=== PATIENT | female | born 1950 | race Caucasian/White ===

== ENCOUNTER → 2016-10-10 | Outpatient (CLI) | payer BC ==
--- NOTE | 2016-10-10 15:55 | DIAGNOSTIC IMAGING REPORT ---
RIGHT FOOT 3 VIEWS CLINICAL HISTORY: Right foot pain. FINDINGS: 3 views of the right foot are obtained. No prior studies are available for comparison at the time of dictation. The skeletal structures are osteopenic. No fracture is seen. There is hallux valgus, with arthritic change at the first metatarsophalangeal joint. The joint spaces of the foot are otherwise maintained. The overlying soft tissues are within normal limits. IMPRESSION: 1. No acute bony abnormality is seen in the right foot. 2. Hallux valgus with arthritic change at the first metatarsophalangeal joint. Electronically signed by: Woodrow Amin M.D. 10/10/2016 3:53 PM Dictated Date/Time: 10/10/2016 3:52 PM
== END | disposition home or self-care (01) ==
LOC: C.RAD1850 15:34
PROVIDERS: ATTEND Nurse Practitioner
DX: M79.671 Pain in right foot (principal)

== ENCOUNTER → 2016-11-13 | Outpatient (CLI) | payer BC ==
--- NOTE | 2016-11-14 13:22 | MAMMOGRAPHY REPORT ---
BILATERAL DIGITAL SCREENING MAMMOGRAM 3D/2D WITH CAD: 11/13/2016 CLINICAL HISTORY: Routine screening. Patient has no complaints. TECHNIQUE: Breast tomosynthesis in addition to standard 2D mammography was performed. Current study was also evaluated with a Computer Aided Detection (CAD) system. COMPARISON: Comparison is made to exams dated: 05/07/2015 mammogram, 12/18/2013 mammogram - [facility], 11/25/2012 mammogram, and 04/18/2011 mammogram - [facility]. BREAST COMPOSITION: The tissue of both breasts is heterogeneously dense, which may obscure small mas ses. FINDINGS: There is a stable benign-appearing 7 mm mass with a cystic coarse calcification in the 9:00 right breast, unchanged in size dating back to at least 04/18/2011, therefore likely benign. There are other scattered benign rim calcifications in both breasts. No suspicious mass, architectural dis tortion or cluster of suspicious microcalcifications is seen. ACR BI-RADS CATEGORY 1: NEGATIVE There is no mammographic evidence of malignancy. A 1 year screening mammogram is recommended. The pa tient will receive written notification of the results. Approximately 10% of breast cancers are not detected with mammography. A negative mammographic report should not delay biopsy if a clinically suggestive mass is present. Michela Morrison M.D. ay/:11/13/2016 15:38:30 [employer] Production Specialist: Lanny VEGAS(Ryan)(Anastasiia), [facility] letter sent: Normal 1/2 BI-RADS Code: ACR BI-RADS Category 1: Negative
== END | disposition home or self-care (01) ==
LOC: C.MAMM 14:28
PROVIDERS: ATTEND Family Medicine
DX: Z12.31 Encounter for screening mammogram for malignant neoplasm of breast (principal)

== ENCOUNTER → 2016-12-26 | Outpatient (CLI) | payer BC | END | disposition home or self-care (01) | LOC: C.MAMM 13:31 | PROVIDERS: ATTEND Family Medicine | DX: Z13.820 Encounter for screening for osteoporosis (principal); M85.852 Other specified disorders of bone density and structure, left thigh; M85.851 Other specified disorders of bone density and structure, right thigh ==

== ENCOUNTER → 2017-02-02 | Outpatient (CLI) | payer BC ==
--- NOTE | 2017-02-02 15:28 | DIAGNOSTIC IMAGING REPORT ---
LEFT ANKLE 3 VIEWS HISTORY: LEFT ANKLE PAIN COMPARISON: None. FINDINGS: There is no fracture or dislocation. Soft tissues are unremarkable. No radiopaque foreign bodies. IMPRESSION: No fractures. Electronically signed by: Wan Fletcher M.D. 02/02/2017 3:27 PM Dictated Date/Time: 02/02/2017 3:26 PM
== END | disposition home or self-care (01) ==
LOC: C.RAD1850 14:56
PROVIDERS: ATTEND Family Medicine
DX: M25.572 Pain in left ankle and joints of left foot (principal)

== ENCOUNTER → 2017-07-03 | Outpatient (CLI) | payer OTHER ==
--- NOTE | 2017-07-03 14:00 | DIAGNOSTIC IMAGING REPORT ---
CHEST 2 VIEWS ROUTINE CLINICAL HISTORY: 66 years-old Female presenting with R05 cough for 6 months. TECHNIQUE: PA and lateral views of the chest were obtained. COMPARISON: 12/25/2014. FINDINGS: Atherosclerosis of the aortic arch. Cardiac silhouette normal in size. Lungs and pleural spaces clear. Osseous structures normal. Cholecystectomy clips noted. Postsurgical changes of prior hernia repair in the ventral abdomen. IMPRESSION: 1. No acute cardiopulmonary disease. Electronically signed by: Galen Pratt M.D. 07/03/2017 1:59 PM Dictated Date/Time: 07/03/2017 1:58 PM
== END | disposition home or self-care (01) ==
LOC: C.RAD1850 13:45
PROVIDERS: ATTEND Family Medicine
DX: R05 Cough (principal)

== ENCOUNTER → 2017-07-25 | Outpatient (CLI) | payer OTHER ==
--- NOTE | 2017-07-25 16:27 | DIAGNOSTIC IMAGING REPORT ---
L-SPINE MIN 4 VIEWS ROUTINE CLINICAL HISTORY: M54.5 low back pain COMPARISON STUDY: No previous studies for comparison. FINDINGS: There are surgical clips within the right upper quadrant suggestive of a prior cholecystectomy. There are multiple coil-shaped metallic radiopacities , Consistent with a prior hernia mesh repair. There is a minimal spinal curvature within the lumbar spine convex to the left. No acute fractures are visualized. There are degenerative changes the L3-4, L4-5, and L5-S1 levels. Posterior osteophytes are visualized the L3-4, and L4-5 levels. IMPRESSION: 1. No acute fractures or subluxations 2. Multilevel degenerative change Electronically signed by: Guy Blakely M.D. 07/25/2017 4:26 PM Dictated Date/Time: 07/25/2017 4:25 PM
[2017-07-25 17:20] LABS: BLOOD UREA NITROGEN 25 mg/dl (7-18); CALCIUM 8.9 mg/dl (8.5-10.1); CARBON DIOXIDE 29 mmol/L (21-32); GLUCOSE 91 mg/dl (70-99); POTASSIUM 3.9 mmol/L (3.5-5.1); SODIUM 139 mmol/L (136-145)
== END | disposition home or self-care (01) ==
LOC: C.RAD 15:11
PROVIDERS: ATTEND Internal Medicine
DX: M54.5 Low back pain (principal); M79.7 Fibromyalgia; M51.36 Other intervertebral disc degeneration, lumbar region; M17.0 Bilateral primary osteoarthritis of knee

== ENCOUNTER → 2017-08-08 | Outpatient (CLI) | payer OTHER ==
--- NOTE | 2017-08-08 15:23 | DIAGNOSTIC IMAGING REPORT ---
THORACIC SPINE 3 VIEWS ROUTINE CLINICAL HISTORY: 67 years-old Female presenting with M54.9 pain in the center of the back. TECHNIQUE: 3 views of the thoracic spine were obtained. COMPARISON: None. FINDINGS: No scoliosis. Normal thoracic kyphosis. Vertebral bodies maintain normal height and alignment. Intervertebral disc heights preserved. Mild multilevel degenerative changes. No radiographic evidence of osseous neural foraminal narrowing. No compression deformity or subluxation. Cholecystectomy clips noted. IMPRESSION: Mild multilevel degenerative changes. No radiographic evidence of osseous neural foraminal narrowing or acute osseous injury of the thoracic spine. Electronically signed by: Galen Pratt M.D. 08/08/2017 3:22 PM Dictated Date/Time: 08/08/2017 3:21 PM
== END | disposition home or self-care (01) ==
LOC: C.RAD 14:53
PROVIDERS: ATTEND Family Medicine
DX: M54.9 Dorsalgia, unspecified (principal)